=== PATIENT | female | born 2000 | race Caucasian/White ===

== ENCOUNTER 2019-07-24 21:31 | Inpatient (IN) ==
[2019-07-24 20:07] LABS: Amphetamine Screen,Urine Negative ng/mL (Cutoff=1000); Barbiturate Screen,Urine Negative ng/mL (Cutoff=200); Benzodiazepines Screen,Urine Negative ng/mL (Cutoff=200); Cannabinoid Screen,Urine Positive ng/mL (Cutoff = 50); Cocaine Screen,Urine Negative ng/mL (Cutoff= 300); Opiate Screen,Urine Negative ng/mL (Cutoff=300); Phencyclidine Screen,Urine Negative ng/mL (Cutoff=25)
[2019-07-24] MEDS: Ringers Solution, Lactated 1,000 ML IVC SCH (21:21)
[2019-07-24 21:22] LABS: Basophils # 0.1 K/mcL (0.0-0.2); Basophils % 0.2 %; Eosinophils # 0.1 K/mcL (0.0-0.6); Eosinophils % 0.3 %; Hematocrit 36.4 % (35.3-44.9); Hemoglobin 12.2 g/dL (11.5-15.4); Immature Granulocytes % 0.7 % (0-4); Lymphocytes # 2.7 K/mcL (0.6-4.6); Lymphocytes % 13.1 %; Mean Corpuscular HGB Conc 33.5 g/dL (31.6-35.5); Mean Corpuscular Volume 86.5 fL (83.0-100.0); Mean Platelet Volume 11.5 fL (9.4-12.4); Monocytes # 1.4 K/mcL (0.0-1.3); Neutrophils # 16.1 K/mcL (1.6-8.9); Platelet Count 418 K/mcL (140-400); Red Blood Count 4.21 M/mcL (3.82-4.97); Red Cell Distribution Width 13.1 % (11.5-14.5); Segmented Neutrophils % 78.7 %; White Blood Count 20.4 K/mcL (4.3-11.1)
[~2019-07-24 21:31] MED LIST: *HR* FentaNYL (PF) 100 MCG/2 ML VIAL ONE; *HR* Nalbuphine 10 MG/ML AMPUL IVP PRN; Famotidine 20 MG/2 ML VIAL IVP PRN; Lidocaine 1% 20 ML MDV INFILT PRN; Metoclopramide 10 MG/2 ML VIAL IVP PRN; Naloxone 0.4 MG/ML INJ IVP PRN; Ondansetron 4 MG/2 ML VIAL IVP PRN; Ropivacaine/PF 0.2% 20 ML VIAL ONE
[2019-07-24] MEDS: Epidural Premix (fent/bupiv) 110 ML EP SCH (22:23)
[2019-07-25 00:27] LABS: Bilirubin,Urine Negative (Negative); Blood,Urine Negative (Negative); Clarity,Urine Cloudy (Clear); Color,Urine Yellow (Yellow); Glucose,Urine (UA) Normal (Normal); Ketones,Urine Negative (Negative); Leukocyte Esterase,Urine Negative (Negative); Nitrite,Urine Negative (Negative); Protein,Urine Negative (Neg-Trace); Specific Gravity,Urine 1.025 (1.010-1.025); Urobilinogen,Urine Normal (Normal)
[2019-07-25 00:29] LABS: Bacteria,Urine None Seen per hpf (None-Few); Hyaline Casts,Urine None Seen per lpf (None-Few); RBC,Urine 0-3 per hpf (0-3); Squamous Epithelial Cell,Urine Many per lpf (None-Few); WBC,Urine 0-3 per hpf (0-3)
[2019-07-25] MEDS ORDERED: Oxytocin 20 units/ LR 1000 mL 20 UNIT/1,000 ML BAG IVC SCH (02:15)
[2019-07-25] MEDS ORDERED: *HR* FentaNYL (PF) 100 MCG/2 ML VIAL ONE (02:37)
[2019-07-25] MEDS ORDERED: Ropivacaine/PF 0.2% 20 ML VIAL ONE (02:37)
[2019-07-25] MEDS: Epidural Premix (fent/bupiv) 110 ML EP SCH (04:05)
[2019-07-25] MEDS ORDERED: Lanolin 7 G OINT...G. TP PRN (06:32)
[2019-07-25] MEDS ORDERED: Benzocaine/Menthol 56 GM AEROSOL SPRAY TP PRN (06:32)
[2019-07-25] MEDS ORDERED: Acetaminophen 325 MG TABLET PO PRN (06:32)
[2019-07-25] MEDS: Ibuprofen 600 MG TABLET PO PRN ×2 (06:47→20:25)
[2019-07-25] MEDS: Prenatal Vit/FA 1 EACH TABLET PO SCH (17:46)
[2019-07-25] MEDS: Oxytocin 20 units/ LR 1000 mL 20 UNIT/1,000 ML BAG IVC SCH (17:46)
[2019-07-25] MEDS: Ringers Solution, Lactated 1,000 ML IVC SCH (17:47)
[2019-07-26 08:10] VITALS: BP 94/51
[2019-07-26] MEDS: Prenatal Vit/FA 1 EACH TABLET PO SCH (09:30)
[2019-07-26] MEDS: Ibuprofen 600 MG TABLET PO PRN (09:30)
== END 2019-07-26 12:35 | disposition home or self-care (01) | DRG 560 ==
LOC: 1NENULAB → 1NENUOBS 07-25 08:15
PROVIDERS: ADMIT Advanced Practice Midwife; ATTEND Advanced Practice Midwife

== ENCOUNTER 2022-01-17 14:16 | Inpatient (IN) ==
[~2022-01-17 14:16] MED LIST changes: -*HR* FentaNYL (PF) 100 MCG/2 ML VIAL ONE; +*HR* Nalbuphine 10 MG/ML AMPUL IV PRN; -*HR* Nalbuphine 10 MG/ML AMPUL IVP PRN; +Azithromycin 500 MG in 0.9 % Sodium Chloride 250 ML IVPB PRN; -Lidocaine 1% 20 ML MDV INFILT PRN; -Ropivacaine/PF 0.2% 20 ML VIAL ONE
[2022-01-17] MEDS ORDERED: Oxytocin 30 UNIT/503 ML BAG IVC SCH ×2 (14:30→23:21)
[2022-01-17] MEDS: Ringers Solution, Lactated 1,000 ML IVC SCH ×2 (14:54→16:35)
[2022-01-17 15:12] LABS: Basophils # 0.1 K/mcL (0.0-0.2); Basophils % 0.3 %; Eosinophils # 0.1 K/mcL (0.0-0.6); Eosinophils % 0.3 %; Hematocrit 33.2 % (35.3-44.9); Hemoglobin 11.3 g/dL (11.5-15.4); Immature Granulocytes % 1.1 % (0-4); Lymphocytes # 2.6 K/mcL (0.6-4.6); Mean Corpuscular Hemoglobin 30.1 pg (28.0-33.3); Mean Corpuscular Volume 88.5 fL (83.0-100.0); Mean Platelet Volume 11.6 fL (9.4-12.4); Monocytes # 1.9 K/mcL (0.0-1.3); Monocytes % 7.8 %; Neutrophils # 18.7 K/mcL (1.6-8.9); Platelet Count 349 K/mcL (140-400); Red Blood Count 3.75 M/mcL (3.82-4.97); Red Cell Distribution Width 13.3 % (11.5-14.5); Segmented Neutrophils % 79.5 %; White Blood Count 23.6 K/mcL (4.3-11.1)
[2022-01-17] MEDS ORDERED: Ropivacaine/PF 0.2% 20 ML VIAL ONE (15:26)
[2022-01-17] MEDS ORDERED: *HR* FentaNYL (PF) 100 MCG/2 ML VIAL ONE (15:26)
[2022-01-17] MEDS ORDERED: Epidural Premix (fent/bupiv) 110 ML EP ONE (15:42)
[2022-01-17 15:45] LABS: Influenza A PCR Negative (Negative); Influenza B PCR Negative (Negative); Resp. Syncytial Virus PCR Negative (Negative)
[2022-01-17 15:48] LABS: Amphetamine Screen,Urine Negative ng/mL (Cutoff=1000); Barbiturate Screen,Urine Negative ng/mL (Cutoff=200); Benzodiazepines Screen,Urine Negative ng/mL (Cutoff=200); Cannabinoid Screen,Urine Positive ng/mL (Cutoff = 50); Cocaine Screen,Urine Negative ng/mL (Cutoff= 300); Opiate Screen,Urine Negative ng/mL (Cutoff=300); Phencyclidine Screen,Urine Negative ng/mL (Cutoff=25)
[2022-01-17 16:05] LABS: SARS-CoV-2 by PCR (In House) Negative (Negative)
[2022-01-17] MEDS ORDERED: Benzocaine/Menthol 56 GM AEROSOL SPRAY TP PRN (23:21)
[2022-01-17] MEDS ORDERED: OXYTOCIN/RINGERS LACTATE 10 UNIT/166.6 ML BAG IVC ONE (23:21)
[2022-01-17] MEDS ORDERED: Lanolin 7 G OINT...G. TP PRN (23:21)
[2022-01-18] MEDS ORDERED: Ondansetron ODT 4 MG TAB.RAPDIS SL PRN
[2022-01-18 00:12] VITALS: O2SAT 99
[2022-01-18] MEDS: Acetaminophen 325 MG TABLET PO SCH ×3 (00:26→19:52)
[2022-01-18] MEDS: Ibuprofen 600 MG TABLET PO SCH ×3 (00:26→15:43)
[2022-01-18 06:00] LABS: Basophils # 0.1 K/mcL (0.0-0.2); Basophils % 0.3 %; Eosinophils # 0.1 K/mcL (0.0-0.6); Eosinophils % 0.5 %; Hematocrit 32.8 % (35.3-44.9); Hemoglobin 10.7 g/dL (11.5-15.4); Immature Granulocytes % 0.9 % (0-4); Lymphocytes # 3.1 K/mcL (0.6-4.6); Mean Corpuscular HGB Conc 32.6 g/dL (31.6-35.5); Mean Corpuscular Hemoglobin 29.3 pg (28.0-33.3); Mean Corpuscular Volume 89.9 fL (83.0-100.0); Mean Platelet Volume 11.3 fL (9.4-12.4); Monocytes # 2.3 K/mcL (0.0-1.3); Monocytes % 9.3 %; Neutrophils # 18.4 K/mcL (1.6-8.9); Platelet Count 316 K/mcL (140-400); Red Blood Count 3.65 M/mcL (3.82-4.97); Red Cell Distribution Width 13.2 % (11.5-14.5); White Blood Count 24.2 K/mcL (4.3-11.1)
[2022-01-18] MEDS ORDERED: Prenatal Vit/FA 1 EACH TABLET PO SCH (09:00)
[2022-01-18 15:51] VITALS: BP 90/51; PULSE 68; TEMP 97.6
== END 2022-01-18 21:17 | disposition home or self-care (01) | DRG 560 ==
LOC: 1NENULAB → 1NENUOBS 22:50
PROVIDERS: ADMIT Registered Nurse; ATTEND Registered Nurse